=== PATIENT | male | born 1970 | race Caucasian/White ===

== ENCOUNTER 2016-05-09 08:28 | Observation (INO) | payer OTHER ==
[~2016-05-09] VITALS: Ht 182.9 cm; Wt 103.5 kg
--- NOTE | ~2016-05-09 | CATH ---
Cardiac Diagnostic + PCI Report Demographics Patient Name ARLETH Campbell Gender Male Date of 1970 Age 45 year(s) Patient Number [id number] Date of Study 05/09/2016 Visit Number [id number] Room Number G6338 [place] [id number] Ht 182 cm Wt 99.8 kg Referring [facility] Primary Physician Physician Erica KAHN Performing [facility] Secondary Physician Physician Erica KAHN Diagnostic [facility] Assisting Physician Physician Erica KAHN Interventional [facility] Physician [employer] Washing Physician Erica KAHN Findings and Conclusions Diagnostic Findings and Conclusion 2 vessel CAD Prox/mid/distal LAD stents are patent Subtotalled small OM3 branch OM2 branch with 60% eccentric lesion Diagnostic Recommendations It's a small vessel, however I have attempted antianginals and despite >3 meds pt continues to have CP and frequent trips to ER and clinic with continued complaints of chest pain, so I will attempt PTCA of the small OM3 branch and hope it helps alleviate his symptoms of cp. Interventional Findings and Conclusion s/p PTCA of subtotalled OM3 99% to 20% residual stenosis with JEN 2 flow The vessel is too small to stent Interventional Recommendations Continue regular medications. Patient will be observed overnight. Hydration and followup creatinine. Aggressive risk factor management. Aggressive medical therapy for coronary artery disease. Dual Anti-platelet therapy. Optimization of medical therapy as an outpatient. Referral to Cardiac Rehabilitation after discharge . Procedure Description The patient was brought to the diagnostic cardiac catheterization-EP laboratory in the fasting, non-sedated state. Informed consent was obtained in the written and verbal form after the risks and benefits were explained. The patient had no further questions and agreed to proceed. The planned puncture-incision site(s) were shaved and prepped with ChloraPrep and draped in the usual sterile manner. Conscious sedation, supplemental oxygen, and pain control medications were delivered by a registered nurse under physician guidance. Surface ECG rhythm, blood pressure measurement, and pulse oximetry were monitored throughout the procedure. Arterial access. The access site was infiltrated with lidocaine. The vessel was entered with the Seldinger technique. A sheath was advanced into the vessel and used for catheter placement. Selective left coronary angiography. A catheter was advanced into the left coronary vessel ostium under Fluoroscopic guidance. Contrast was injected by hand. Images were obtained in multiple projections. Selective right coronary angiography. A catheter was advanced into the right coronary vessel ostium under fluoroscopic guidance. Contrast was injected by hand. Images were obtained in multiple projections. Angioplasty: A guiding catheter was used to intubate the vessel. A 0.14 wire was used to cross the lesion. A balloon was positioned across the lesion and inflated. Post placement angiograms were performed. Arterial artery hemostasis was achieved. The patient was transferred to a regular nursing floor via cart accompanied by a nurse. The patient left the laboratory in stable condition. Diagnostic Cath Status: Emergency Interventional Cath Status: Emergency Procedure Procedure Type Diagnostic procedure:Angiography:, Coronary Angios PCI procedure:PTCA:, OM Indications: Chest pain. The procedure was explained in detail to the patient. Risks, complications and alternative treatments were reviewed. Written consent was obtained. Medications Reviewed with Patient prior to Procedure. Angiographic Findings Dominance: Right Cardiac Arteries and Lesion Findings LMCA: Normal (0% Stenosis). LAD: Abnormal.prox/mid/distal LAD stents patent diag 20% ostialThere is a previous stent on Mid LAD Mid subsection. There is a previous stent on Prox LAD. Lesion on 1st Diag: Ostial.20% stenosis . LCx: Abnormal.circ wnl OM1 normal OM2 60% diffuse disease in the proximal portion OM3 subtotalled Lesion on 3rd Ob Tracey: Ostial. Devices used - Runthrough NS .014 x 180. Number of passes: 1. - Emerge Balloon 2.0 x 12. 3 inflation(s) to a max pressure of: 12 shivani. - Emerge Balloon 2.0 x 12. 2 inflation(s) to a max pressure of: 10 shivani. Lesion on Lat 3rd Ob Tracey: Ostial.99% stenosis 10 mm length reduced to 20%. Pre procedure JEN I flow was noted. Post Procedure JEN II flow was present. The guidewire cross was successful.A poor run off was present.The lesion was diagnosed as a moderate risk lesion.Culprit lesion. RCA: Abnormal.prox RCA 20% PL 20% Coronary Tree Procedure Data Procedure Date Date: 05/09/2016Start: 10:36 AMEnd: 11:18 AM Entry Locations - Retrograde Percutaneous access was performed through the Right Radial artery (Primary location). A 6 Fr sheath was inserted. Hemostasis was successfully obtained using Mechanical Compression. Closure Comments: 13 cc air in r band by kain. Procedure Medications Order and Administration + + + + + !Time !Medication !Dosage !Route ! + + + + + !05/09/2016 10:35 AM !Fentanyl !50 mcg !I.V. ! + + + + + !05/09/2016 10:34 AM !Versed !1 mg !I.V. ! + + + + + !05/09/2016 10:38 AM !Versed !1 mg !I.V. ! + + + + + !05/09/2016 10:39 AM !Radial Verapamil !2.5 mg !I.A. ! + + + + + !05/09/2016 10:39 AM !Fentanyl !50 mcg !I.V. ! + + + + + !05/09/2016 10:44 AM !Versed !1 mg !I.V. ! + + + + + !05/09/2016 10:44 AM !Heparin (ACC_3) !5000 units !I.V. bolus ! + + + + + !05/09/2016 10:51 AM !Versed !1 mg !I.V. ! + + + + + !05/09/2016 10:52 AM !Heparin (ACC_3) !3000 units !I.V. bolus ! + + + + + !05/09/2016 10:54 AM !Fentanyl !50 mcg !I.V. ! + + + + + !05/09/2016 11:02 AM !Versed !1 mg !I.V. ! + + + + + !05/09/2016 11:04 AM !Heparin (ACC_3) !2000 units !I.V. bolus ! + + + + + !05/09/2016 11:04 AM !Fentanyl !50 mcg !I.V. ! + + + + + !05/09/2016 11:09 AM !Nitroglycerin !5 mcg/min !I.V. drip ! + + + + + !05/09/2016 11:11 AM !Nitroglycerin ! !I.V. drip ! + + + + + !05/09/2016 11:11 AM !Oxygen !2 l/min !NC ! + + + + + Devices Used - A5 Fr. BS JR 4 Diag. Catheterwas used for:Right coronary angiography. - A6 Fr. EBU 3.5 Guide Catheterwas used for:Left coronary angiography. Contrast Material - Isovue 319644 ml Fluoroscopy Time: Diagnostic: 9:36 minutes. Total: 9:36 minutes. Fluoroscopy Dose: Diagnostic: 2101 mGy. Total: 2101 mGy. Estimated Blood Loss: 10 ml. Additional [facility] PCI Information PCI Indication:PCI for high risk Non-STEMI or unstable angina. Medical History Allergies - Sulfa. - Sulfa. Risk Factors The patient risk factors include:prior PCI on 02/07/2016;physical activity, treated hypercholesterolemia, treated hypertension, family history of premature CAD, last creatinine: 1.3 mg/dl, creatinine clearance: 101.29 ml/min, dyslipidemia, former tobacco use and prior [place] . Admission Data Admission Date: 05/09/2016 Admission Time: 10:27 AM Admit Source: Emergency department Insurance Payors: Private health insurance. Clinical Evaluation Leading to Procedure - The patient's CAD presentation was assessed as: Unstable angina. - The patient's anginal syndrome during the past two weeks was assessed as: Class IV according to the [place] Cardi[employer] Classification System (CCS). Anti-anginal medications were prescribed during the past two weeks. The medications are: Beta Blockers and Other. - The patient has been in a state of heart failure within the past two weeks. - The patient's heart failure status was assessed as NYHA Class II, with CHF symptoms of MARTINEZ. [facility] Ventriculography Findings echo EF 55-60% Hemodynamics Condition: Rest O2 Consumption: Estimated: 292.38Heart Rate: 100 bpm Pressures (mmHg) +-----+ + !Site !Pressure ! +-----+ + !AO !120/95 (107) ! +-----+ + !AO !109/82 (91) ! +-----+ + Shunts Oxygen Values O2 Capacity 199.92 O2 Consumption 292.38 Signatures dtt: ERICA SNIDER dtd: 05/09/16 1036 Physician Self Edit
--- NOTE | ~2016-05-09 | CON ---
PATIENT'S NAME: KARL BLOOD [facility] AGE: 45 Y [address] ROOM: G6338 [place], [place] [address] LOCATION: GPCU ADMIT DATE: 05/09/2016 Consultation DISCHARGE DATE: FAMILY PHYSICIAN: Layne Barajas MD ATTENDING PHYSICIAN: LELO SNIDER DATE OF CONSULTATION: 05/09/2016 REQUESTING PROVIDER: Keysha Bender MD REASON FOR CONSULTATION: Chest pain. CHIEF COMPLAINT: Chest pain HISTORY OF PRESENT ILLNESS: The patient is a very pleasant 45-year-old male, who initially had a non-STEMI in January 2016. He also had malignant hypertensive urgency when he came during that admission in January. During catheterization, he found to have significant obstructive disease in most of the LAD proximal and mid to distal and required three drug-eluting stents to be placed at that time. He had a severe reaction during the end of the procedure and not sure if he was allergic to contrast or Angiomax, but we did have to follow the ACLS protocol for hypotension for a little bit and difficulty breathing. He did receive doses of epi for possible anaphylactic reaction to either Angiomax or contrast. The patient has had numerous complaints since his initial stenting and has had several visits to the ER as well as to my clinic with complaints of chest pain. Most of the times, he did rule out HI. There were no significant ECG changes and he has just been optimized medically to help control his symptoms. The OM3 during his initial catheterization was subtotal, but it is a very small vessel and we thought we would just treat that medically. This morning, he was in the tractor trying to remove the snow and he started having severe chest pain 10/10 and that radiates to the back and the jaw. He also has diaphoresis and shortness of breath. He seems to be in significant amount of distress. He took one sublingual nitroglycerin but that did not help. After coming to the ER, he got full-dose aspirin, heparin. I asked the ER physician to also prep him for contrast allergy and we will take him to the dental laboratory assistant urgently to see if he has any in-stent restenoses of his drug alluding stents or perhaps he might need intervention of that OM branch. He does not have any fever, chills, nausea, vomiting, diarrhea, constipation. PATIENT'S NAME: ARLETH, TY [facility] AGE: 45 Y [address] ROOM: [place] [address] LOCATION: GPCU ADMIT DATE: 05/09/2016 Consultation DISCHARGE DATE: FAMILY PHYSICIAN: Layne Barajas MD ATTENDING PHYSICIAN: LELO SNIDER No other acute illnesses. He has been in his usual state of health. He was having severe adverse reactions with Brilinta ,especially shortness of breath and dyspnea on exertion and that was discontinued and he has been taking Effient, but complains of bruising off and on. REVIEW OF SYSTEMS: A 10-point review of systems discussed with patient. Pertinent positives and negatives mentioned in the history of presenting illness. MEDICATIONS: 1. Aspirin 81 daily. 2. Lipitor 80 daily. 3. Lexapro 20 daily. 4. Neurontin 600 t.i.d. 5. Lopressor 50 b.i.d. 6. Effient 10 daily. 7. Ranexa 500 b.i.d. 8. Motley p.r.n. 9. Flexeril 10 mg p.r.n. 10. Xanax 0.5 mg p.r.n. 11. Nitroglycerin sublingual p.r.n. ALLERGIES: SULFA, ANGIOMAX, AND CONTRAST. PAST MEDICAL HISTORY: Chronic back pain, hypertension, anxiety, depression, and coronary artery disease. Non-STEMI in January 2016. PAST SURGICAL HISTORY: Appendectomy, vasectomy. SOCIAL HISTORY: The patient lives in [place]. 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 No alcohol abuse, no illicit drug abuse, and no history of tobacco abuse. FAMILY HISTORY: No premature coronary artery disease or sudden cardiac . PHYSICAL EXAMINATION: VITAL SIGNS: Blood pressure 130/80, heart rate in the 80s. Height is 6 feet. GENERAL: The patient is alert and oriented, however, he is in severe distress and he is not able to lay still due to pain. HEENT: Eyes; sclerae white. No xanthelasma. Mucous membranes moist. PATIENT'S NAME: KARL BLOOD [facility] AGE: 45 Y [address] ROOM: [place] [address] LOCATION: GPCU ADMIT DATE: 05/09/2016 Consultation DISCHARGE DATE: FAMILY PHYSICIAN: Layne Barajas MD ATTENDING PHYSICIAN: LELO SNIDER NECK: No JVD. Supple. LUNGS: Clear to auscultation bilaterally HEART: S1 and S2. Regular rate and rhythm. No murmurs, gallops, or rubs. ABDOMEN: Soft. Bowel sounds positive. SKIN: Warm and dry. NEUROLOGIC: No focal deficits. JOINTS: Have no significant swelling or erythema noted. IMAGING: Echocardiogram; normal LV systolic function. LVEF 55-60%. Mild MR. No significant wall motion abnormalities on echo that was done during his last admission a month ago. EKG, normal sinus rhythm with some baseline artifact, mild ST depression in isolated lead V3. LABORATORY DATA: Sodium 141, potassium 4.2, chloride 108, CO2 of 24, anion gap 13.2, glucose 101, calcium is 8.7, BUN 19, creatinine 1.3. Alkaline phosphatase is 73, AST 24, ALT 52, estimated GFR 50. LDL 64, triglycerides 92, CPK first set is 78. CK-MB 1 and troponin is less than 0.04. Chest x-ray, there is no evidence of acute cardiopulmonary disease. ASSESSMENT AND PLAN: 1. Unstable angina in patient with recent stenting of his proximal and mid to distal LAD with three drug-eluting stents and now he has severe chest discomfort radiating to the jaw, this is very concerning for obstructive coronary artery disease. He has had numerous admission for recurrent chest pain as well as visits to the emergency room. At this time, I think it is best to proceed with heart catheterization and evaluate the stents. I have tried everything to attempt to treat him medically but he continues to come back with recurrent symptoms. He is on guideline- directed medical therapy. We will evaluate the LAD stents and if necessary if those are patent, he may need at least ballooning or perhaps may be a small stent of the distal OM3 branch. He did have significant anaphylactic reaction at the end of the catheterization and I will prep him for potential contrast allergy and we will avoid Angiomax and we will give him heparin if we need to intervene for this admission. 2. Hypertension, that is well controlled. 3. Hyperlipidemia, that is well controlled. 4. Chronic medical issues including anxiety/depression and chronic pain, he is on medications. We will continue those while he is inpatient. Thank you very much, Dr. Bender for allowing us to participate in the care of Mr. Blood. We will proceed with heart catheterization and decide further treatment plan. PATIENT'S NAME: KARL BLOOD A [facility] AGE: 45 Y [address] ROOM: [address] [place] [id number] [facility] AD[facility] DATE: 05/09/2016 Consultation DISCHARGE DATE: FAMILY PHYSICIAN: Layne Barajas MD ATTENDING PHYSICIAN: LELO SNIDER LELO SNIDER MD AT/modl /[id number] d: 05/09/16 1415 t: 05/20/16 1733, CONSULTATION REPORT
--- NOTE | ~2016-05-09 | ER ---
PATIENT'S NAME: KARL REINOSO [facility] AGE: 45 Y [address] ROOM: [place] [address] LOCATION: GPCU ADMIT DATE: 05/09/2016 ER/Outpatient Report DISCHARGE DATE: FAMILY PHYSICIAN: Layne Barajas MD ATTENDING PHYSICIAN: LELO SNIDER Time of Arrival: 0828 hours. Time Seen: 0830 hours. IDENTIFICATION: A 45-year-old male. CHIEF COMPLAINT: Chest pain. HISTORY OF PRESENT ILLNESS: The patient developed severe substernal left-sided chest pain with no radiation after scooping snow in a tractor approximately 10 minutes prior to arrival. It is associated with nausea, shortness of breath, diaphoresis, and lightheadedness. The patient has a history of known coronary artery disease, had a non ST-elevation NJ in January with 3 stents to his LAD. The patient was admitted on March 21 and with atypical chest pain, had a transthoracic echocardiogram which was normal and was evaluated by the independent living instructor. The patient had complications of having an anaphylactic reaction during the cardiac cath and they are not sure what he reacted to. PAST MEDICAL HISTORY: ALLERGIES: SULFA, ANGIOMAX (BIVALIRUDIN), AND AMLODIPINE. CURRENT MEDICATIONS: 1. Nitroglycerin 0.4 mg sublingual p.r.n., he did take one prior to arrival with no relief. 2. Aspirin 81 mg daily, has not taken yet today. 3. Lipitor 80 mg. 4. Lexapro 20 mg. 5. Neurontin 600 mg t.i.d. 6. Imdur 30 mg daily. 7. Lopressor 50 mg b.i.d. 8. Effient 10 mg daily. 9. Ranexa 1000 mg b.i.d. 10. [place] 10/325 q.4 hours. 11. Flexeril 10 mg p.r.n. 12. Xanax 0.5 mg p.r.n. q.6 hours. PATIENT'S NAME: KARL REINOSO [facility] AGE: 45 Y [address] ROOM: [place] [address] LOCATION: GPCU ADMIT DATE: 05/09/2016 ER/Outpatient Report DISCHARGE DATE: FAMILY PHYSICIAN: Layne Barajas MD ATTENDING PHYSICIAN: LELO SNIDER MEDICAL PROBLEMS: Hypertension, hyperlipidemia, chronic back pain, anxiety, depression, non-ST- elevation NJ with stents, and anaphylactic reaction. PRIOR SURGERIES: Cardiac stents, appendectomy, and vasectomy. SOCIAL HISTORY: The patient lives in [place]. 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 Tobacco use, he has quit. Alcohol use, denies. Drug use, denies. REVIEW OF SYSTEMS: All systems reviewed and negative other than what is noted in the HPI. FAMILY HISTORY: No family history of premature coronary artery disease. PHYSICAL EXAMINATION: VITAL SIGNS: Weight 109.5 kg. Blood pressure 123/96, pulse 92, respirations 20, temperature 96, and sats 97% on room air. GENERAL: A 45-year-old male, in obvious distress with significant 8/10 chest pain. HEENT: Normocephalic, atraumatic. Eyes: Pupils equal and reactive to light and accommodation. Extraocular movements intact. Nose: Mucosa pink. No lesions. Mouth: No lesions. Pharynx benign. NECK: Supple. No lymphadenopathy. LUNGS: Clear to auscultation. HEART: Regular rate and rhythm. ABDOMEN: Bowel sounds present. Soft, nondistended. No hepatosplenomegaly. No palpable masses. Nontender. SKIN: [place], warm, and dry. No lesions or rashes noted. NEURO: The patient is alert and oriented x4. Cranial nerves 2 through 12 grossly intact. Motor strength 5/5 throughout. Sensation is intact to light touch. EMERGENCY DEPARTMENT COURSE: An IV was initiated. The patient was given 4 baby aspirin and 1 sublingual nitroglycerin. EKG was obtained showing normal sinus rhythm with PACs, minimal ST-segment depression in V3 only, no significant change when compared to prior EKG. ST depression in that I lead is slightly different. Sodium 141, potassium 4.2, chloride 108, CO2 24, BUN 19, creatinine 1.3, and blood sugar 101. Liver enzymes normal. Magnesium 2, CK 78, CK-MB 1, and troponin I less than 0.040. Hemoglobin 14.7, hematocrit 43.9, platelets 225, and white count 6.0 with a normal differential. INR 1.0. Chest x-ray, no acute PATIENT'S NAME: KARL REINOSO [facility] AGE: 45 Y [address] [place]: [facility] [place], [place] [address] [facility] AD[facility] DATE: 05/09/2016 ER/Outpatient Report DISCHARGE DATE: FAMILY PHYSICIAN: Layne Barajas MD ATTENDING PHYSICIAN: LELO SNIDER process, pending Radiology over-read. The patient received no relief with sublingual nitroglycerin. He was started on a nitroglycerin drip and given morphine with no relief. He was given Dilaudid with no relief. He continued to have 8/[address] Maldonado was contacted and decided to take him to the computer lab para professional. IMPRESSION AND PLAN: 1. Unstable angina with persistent pain. The patient was taken to the computer lab para professional per Dr. Maldonado. 2. Hypertension. 3. Hyperlipidemia. 4. Chronic back pain. 5. Anxiety and depression. 6. History of anaphylactic reaction. The patient was premedicated for the computer lab para professional with Solu-Medrol 125 mg IV, Pepcid 20 mg IV, Benadryl 25 mg IV, and heparin [address] Maldonado. The patient arrived to the ER at 0828 hours, seen at 0830 hours, and taken to the computer lab para professional at 1021 hours. 35 minutes of critical care was provided with this patient. EVANS ANDERSON MD CAR/modl /[id number] d: 05/09/16 2150 t: 05/13/16 0653, OUTPATIENT REPORT
[~2016-05-09 08:28] MED LIST: ADVIL200 MG PO; ASPIRIN LO-DOSE81 MG PO; BRILINTA90 MG PO; ECOTRIN81 MG PO; EFFIENT10 MG PO; FLEXERIL10 MG PO; IMDUR30 MG PO; LEXAPRO20 MG PO; LIPITOR80 MG PO; LOPRESSOR50 MG PO; NEURONTIN300 MG PO; NITROSTAT0.4 MG SL; NORCO 10-325 T1 EACH PO; NORVASC5 MG PO; RANEXA ER500 MG PO; SIMVASTATIN40 MG PO; XANAX0.5 MG PO; ZOFRAN4 MG PO
[2016-05-09 08:50] LABS: BASOPHIL # 0.1 K/uL (0.0-0.2); EOSINOPHIL # 0.1 K/uL (0.0-0.5); EOSINOPHIL % 2.2 %; HEMATOCRIT 43.9 % (37.0-53.0); HEMOGLOBIN 14.7 g/dL (12.0-17.0); IMMATURE GRANULOCYTE % 0.3 %; LYMPHOCYTE # 2.7 K/uL (0.8-4.0); LYMPHOCYTE % 45.2 %; MCH 29.6 pg (27.0-34.0); MCHC 33.5 gm/dL (32.0-36.5); MCV 88.3 fl (83.0-98.0); MONOCYTE # 0.4 K/uL (0.0-1.0); MPV 10.1 fl (9.4-12.4); NEUTROPHIL # (ANC) 2.7 K/uL (1.4-9.0); NEUTROPHIL % 44.3 %; NRBC % 0 /100WBC (0-0.00); RBC 4.97 M/uL (4.00-6.00); RDW-CV 13.3 % (11.9-14.6)
[2016-05-09 08:51] LABS: PLATELET COUNT 225 K/uL (150-450)
[2016-05-09 09:04] LABS: PROTIME 10.8 SECONDS (9.6-11.1); PTT 26 SECONDS (25-32)
[2016-05-09 09:14] LABS: ALK PHOS 73 IU/L (33-138); ALT 52 IU/L (12-78); ANION GAP 13.2 (10.0-19.0); AST 24 IU/L (10-40); BLOOD UREA NITROGEN 19 mg/dL (6-24); CALCIUM 8.7 mg/dL (8.5-10.5); CHLORIDE 108 mMol/L (96-110); CO2 24 mMol/L (22-32); CPK 78 IU/L (35-332); CREATININE 1.3 mg/dL (0.6-1.3); ESTIMATED GFR (MDRD EQUATION) 60; POTASSIUM 4.2 mMol/L (3.7-5.1); SODIUM 141 mMol/L (135-145); TOTAL BILIRUBIN 0.6 mg/dL (0.0-1.5); TOTAL PROTEIN 7.2 g/dL (6.0-8.4)
[2016-05-09] MEDS ORDERED: PROMETHAZINE HC25 M1 PO (12:10)
[2016-05-09 16:16] LABS: CPK 64 IU/L (35-332)
[2016-05-10 04:30] LABS: ALBUMIN 3.5 gm/dL (3.5-5.0); ALK PHOS 70 IU/L (33-138); ALT 39 IU/L (12-78); ANION GAP 12.7 (10.0-19.0); AST 19 IU/L (10-40); BLOOD UREA NITROGEN 18 mg/dL (6-24); CALCIUM 8.6 mg/dL (8.5-10.5); CHLORIDE 106 mMol/L (96-110); CO2 24 mMol/L (22-32); CREATININE 1.2 mg/dL (0.6-1.3); ESTIMATED GFR (MDRD EQUATION) > 60; POTASSIUM 4.7 mMol/L (3.7-5.1); SODIUM 138 mMol/L (135-145); TOTAL BILIRUBIN 0.5 mg/dL (0.0-1.5); TOTAL PROTEIN 6.7 g/dL (6.0-8.4)
[2016-05-10] MEDS ORDERED: TYLENOL325 MG PO (14:28)
[2016-05-10] MEDS ORDERED: PROCARDIA XL30 MG PO (14:29)
== END 2016-05-10 15:00 | disposition disaster alternative care site (69) ==
LOC: GMED 08:28 → GPCU 10:27
PROVIDERS: Family Medicine; ADMIT Internal Medicine Interventional Cardiology
PROC: 02713ZZ Dilation of Coronary Artery, Two Arteries, Percutaneous Approach (ICD-10-PCS; principal; 2016-05-09)
DX: I25.110 Atherosclerotic heart disease of native coronary artery with unstable angina pectoris (principal); I10 Essential (primary) hypertension; I25.2 Old myocardial infarction; F41.9 Anxiety disorder, unspecified; F32.9 Major depressive disorder, single episode, unspecified; M54.9 Dorsalgia, unspecified; G89.29 Other chronic pain; Z88.2 Allergy status to sulfonamides; Z91.041 Radiographic dye allergy status; Z95.5 Presence of coronary angioplasty implant and graft; Z98.890 Other specified postprocedural states; Z23 Encounter for immunization
CPT/HCPCS: A9270; C1725; C1769; C1887; G0009; G0378; J1170; J1200; J1644; J2060; J2250; J2270; J2930; J3010; J7030

== ENCOUNTER 2016-05-16 16:30 | Inpatient (IN) | payer OTHER ==
[~2016-05-16] VITALS: Ht 182.9 cm; Wt 100.5 kg
--- NOTE | ~2016-05-16 | ER ---
PATIENT'S NAME: KARL REINOSO [facility] AGE: 45 Y [address] ROOM: [place] [address] LOCATION: GPCU ADMIT DATE: 05/16/2016 ER/Outpatient Report DISCHARGE DATE: FAMILY PHYSICIAN: Layne Barajas MD ATTENDING PHYSICIAN: KATIE ENCARNACION Time of Arrival: 1631 hours. Time of Evaluation: 1631 hours. CHIEF COMPLAINT: Headache. HISTORY OF PRESENT ILLNESS: The patient states about 2 o'clock this morning, he got up to go to the bathroom, became dizzy, and ended up falling, hitting his head on the wall, and has had a headache ever since of the right posterior area. He states he was diagnosed with pneumonia 3 or 4 days ago. Started on Levaquin at that time, and he has had quite a cough. He said the cough has made the headache worse. He did take some ibuprofen at 1 o'clock this afternoon. Denies being nauseated, has not vomited. Has not had any change in his vision. He has had fevers and chills. Denies having any chest pain. Continues to be dizzy. ALLERGIES: ON HIS CHART AND WERE REVIEWED BY ME. CURRENT MEDICATIONS: On his chart and were reviewed by me. PAST MEDICAL HISTORY: Non-STEMI NH in January 2016, had stent of the LAD, hypertension, chronic low back pain, anxiety, depression, currently has pneumonia. PAST SURGICAL HISTORY: Include appendectomy, vasectomy, cardiac stents. SOCIAL HISTORY: Denies use of tobacco or drugs. Drinks alcohol just on occasional basis. REVIEW OF SYSTEMS: All negative other than those mentioned in the HPI. PHYSICAL EXAMINATION: VITAL SIGNS: He weighs 102.9 kg, blood pressure is 120/58, pulse of 88, respirations 16, temperature of 99.8 tympanic, O2 saturation is 91% on room air. [place] Coma Scale is 15. PATIENT'S NAME: KARL REINOSO [facility] AGE: 45 Y [address] ROOM: [place] [address] LOCATION: GPCU ADMIT DATE: 05/16/2016 ER/Outpatient Report DISCHARGE DATE: FAMILY PHYSICIAN: Layne Barajas MD ATTENDING PHYSICIAN: KATIE ENCARNACION GENERAL: He is awake, alert, and oriented x4. SKIN: His skin is pink, warm, and dry. RESPIRATIONS: Even and nonlabored. Lung sounds are clear throughout. HEART: Regular rate and rhythm. Pupils are equal and reactive to light. Extraocular movement is intact. Oropharynx is clear. NECK: Supple. No lymphadenopathy. EMERGENCY DEPARTMENT COURSE: The patient has a harsh cough during the coughing spell, his O2 sats do drop down to 87%. He was monitored after the coughing spell. He continued to have low O2 sats. He was placed on 1 L per nasal cannula to keep him above 90%. Dr. Rollins was consulted, and he did evaluate the patient. Monitor showing a sinus rhythm. LABORATORY DATA AND X-RAYS: Lab work was drawn. CBC is within normal limits. Chem panel: Sodium is 133, potassium is 4.9, and chloride 94. His BUN is 23 with a creatinine of 2.2. His last creatinine we have on file was 1.2, so he has an increase in his creatinine. His GFR is 33. Lactate was 2.9. CRP is 1.77. Procalcitonin is 0.19. Chest x-ray was reviewed with Dr. Rollins. No acute process noted. Dr. Cooper did call in and talked with Dr. Rollins regarding the patient. Dr. Encarnacion was contacted. IMPRESSION: 1. Acute kidney injury. 2. Hypoxia. 3. Cough. PLAN: The patient will be placed in observation to the hospitalist. The patient verbalizes understanding. MARIA D JOSEPH APRN FOR MD HARRY CANCINO/santosl /[id number] I have evaluated the patient and agree with the plan and care as documented above. d: 05/16/164 t: 05/26/16 1735, OUTPATIENT REPORT
--- NOTE | ~2016-05-16 | HP ---
PATIENT'S NAME: KARL REINOSO [facility] AGE: 45 Y [address] ROOM: [place] [address] [facility] ADMIT DATE: 05/16/2016 History & Physical DISCHARGE DATE: FAMILY PHYSICIAN: Layne Barajas MD ATTENDING PHYSICIAN: KATIE CLARK DATE OF SERVICE: CHIEF COMPLAINT: Syncope. HISTORY OF PRESENT ILLNESS: This is a 45-year-old male with a history of coronary artery disease, status post 3 drug-eluting stent placement in January 2016 as well as recent balloon angioplasty, presenting with chest pain by Dr. Cooper last week. Presents this time again after having a syncopal episode at home. The patient reports that he got up to use the restroom in the middle of the night last night and as he was doing that he was sitting at the side of the bed and the next thing he remembers was falling and waking up. The patient denies any prodromal symptoms including chest pain, shortness of breath, palpitations, dizziness, diaphoresis either prior to or following this syncopal episode. The patient's states that she heard a loud bang and woke up. The patient upon she approached him was awake and conscious. The patient subsequently came to the emergency room for evaluation. The patient of note had been having increasing cough that was productive and shortness of breath associated with this, and was started on treatment for possible community-acquired pneumonia and had been on Levaquin for the past 5 days by his primary care physician. The patient otherwise during my visit today denies any active ongoing chest pain. Does report significant cough, was also productive, however, sputum has gotten clear since he started antibiotics. The patient otherwise denies any dizziness or lightheadedness right now. Also denies any fever, chills, nausea, or vomiting. PAST MEDICAL HISTORY: 1. Coronary artery disease status post stents. 2. Hypertension. 3. Hyperlipidemia. SOCIAL HISTORY: The patient has a long history of smoking, but had stopped smoking about 9 months ago. Denies use of daily alcohol drinking or illicit drug use. FAMILY HISTORY: The patient's father from cancer at the age of 60. Also has history of brain aneurysm in the mother. PATIENT'S NAME: KARL REINOSO [facility] AGE: 45 Y [address] ROOM: [place] [address] [facility] ADMIT DATE: 05/16/2016 History & Physical DISCHARGE DATE: FAMILY PHYSICIAN: Layne Barajas MD ATTENDING PHYSICIAN: KATIE CLARK REVIEW OF SYSTEMS: A 10-point review of systems was conducted and were all negative except as mentioned in the HPI. PHYSICAL EXAMINATION: VITAL SIGNS: Blood pressure 116/66, pulse 85, respiratory rate 20, temperature 98.3, and saturating 90% on 2 L of oxygen. GENERAL: The patient is awake, alert, and oriented x3, in no acute distress. HEENT: Moist mucous membranes. No scleral icterus or conjunctival pallor noted. SKIN: Without rash or lesions. HEART: S1 and S2. Regular rate and rhythm. LUNGS: Diminished breath sounds and diffuse wheezing noted. ABDOMEN: Soft, nontender, and nondistended. Positive bowel sounds. EXTREMITIES: Without edema. MUSCULOSKELETAL: No joint pain or muscle tenderness noted. NEURO: Grossly nonfocal. SIGNIFICANT LABS: Creatinine 2.2, BUN 23. Creatinine last week was 1.2. ASSESSMENT AND PLAN: 1. Syncope, cardiac. Syncopal episode appears to have occurred without any prodrome. Knowing the patient's extensive cardiac history needs evaluation for cardiac syncope. The patient very well known to [facility] Cardiology and we will consult. The patient has had recent balloon angioplasty during this admission last week after presenting with chest pain. 2. Coronary artery disease, status post 3 drug-eluting stents placement in January as well as balloon angioplasty last week. The patient very well known to Dr. Cooper and [facility] Cardiology. 3. Hypertension. The patient started on Procardia during his last admission. Blood pressure 116/68. 4. Acute kidney injury. The patient's creatinine 2.2 today. Upon discharge last week was 1.2. The patient did have angiogram last week and this was likely contrast induced. We will give some IV fluids and recheck creatinine in the morning. 5. Hyperlipidemia. Continue high-dose statin therapy. 6. Deep venous thrombosis prophylaxis. We will use subcutaneous heparin. KATIE CLARK MD PATIENT'S NAME: KARL REINOSO [facility] AGE: 45 Y [address] ROOM: [place] [address] LOCATION: [facility] ADMIT DATE: 05/16/2016 History & Physical DISCHARGE DATE: FAMILY PHYSICIAN: Layne Barajas MD ATTENDING PHYSICIAN: KATIE CLARK /[id number] D: [id number] T: [id number] HISTORY & PHYSICAL
--- NOTE | ~2016-05-16 | DS ---
PATIENT'S NAME: KARL REINOSO [facility] AGE: 45 Y [address] ROOM: [place] [address] LOCATION: GPCU ADMIT DATE: 05/16/2016 Discharge Summary DISCHARGE DATE: 05/20/2016 FAMILY PHYSICIAN: Layne Barajas MD ATTENDING PHYSICIAN: Doug Encarnacion PRIMARY DIAGNOSES: 1. Bwx-QT-wdoylckle myocardial infarction. 2. Coronary artery disease, status post left heart catheterization with drug- eluting stent to the obtuse marginal 3. 3. Essential hypertension. 4. Hyperlipidemia. 5. Syncope, vasovagal. 6. Acute bronchitis. 7. Acute kidney injury, prerenal. OPERATIONS AND PROCEDURES: Left heart catheterization was performed on 05/19/[address] Almonte with resultant drug-eluting stent to the OM 3. HISTORY OF PRESENTING ILLNESS AND REASON FOR ADMISSION: Please refer to the H and P dictated on 05/16/2016. HOSPITAL COURSE: The patient was admitted to the hospital as noted above with a presumptive diagnosis of dkx-SC-hvfbtawyw FL. He was monitored on telemetry. Cardiology was consulted. The patient did receive broad-spectrum antibiotic therapy for treatment and prevention of secondary pneumonia with acute bronchitis. He also received some aggressive symptomatic measures and supportive cares including IV fluids, expectorants, and nebulizer treatments. His oxygenation remained adequate. He had acute kidney injury at the point of admission, but this resolved with IV fluid hydration therapy. Cardiology did recommend to proceed with cardiac catheterization. This was carried out as described above with resultant drug- eluting stent to the obtuse marginal 3. Postoperatively, the patient did well and remained chest pain-free over the remainder of his hospital stay. By the end of the fifth day of his hospital stay, it was felt he would be stable enough for discharge to home with plans for close clinical followup with Cardiology as well as outpatient followup with his primary care provider Dr. Layne Barajas. DISCHARGE INSTRUCTIONS: DIET: Cardiac prudent, as tolerated. PATIENT'S NAME: KARL REINOSO [facility] AGE: 45 Y [address] ROOM: [place] [address] LOCATION: GPCU ADMIT DATE: 05/16/2016 Discharge Summary DISCHARGE DATE: 05/20/2016 FAMILY PHYSICIAN: Layne Barajas MD ATTENDING PHYSICIAN: Doug Encarnacion ACTIVITY: As tolerated. MEDICATIONS: 1. Aspirin 81 mg p.o. daily. 2. Atorvastatin 80 mg p.o. q.h.s. 3. Lexapro 20 mg p.o. q.h.s. 4. Gabapentin 600 mg p.o. t.i.d. 5. Metoprolol 100 mg p.o. b.i.d. 6. Nifedipine ER 30 mg p.o. q.a.m. 7. Effient 10 mg p.o. daily. 8. [place] 10/325 one tablet p.o. q.4 hours p.r.n. pain. 9. Alprazolam 0.5 mg p.o. q.6 hours p.r.n. anxiety. 10. Promethazine 25 mg p.o. q.6 hours p.r.n. nausea. 11. Flexeril 10 mg p.o. q.h.s. p.r.n. 12. Nitroglycerin p.r.n. 13. Acetaminophen 650 mg p.o. q.4 hours p.r.n. FOLLOWUP: He will follow up with Cardiology in 2 weeks, follow up with primary care provider Dr. Layne Barajas in 5 to 7 days. CONDITION ON DISCHARGE: Fair. Total time spent on discharge process is 45 minutes. MD ODILIA JANE/ophelia /[id number] d: 05/21/16 1101 t: 05/25/16 1550, DISCHARGE SUMMARY
--- NOTE | ~2016-05-16 | CON ---
PATIENT'S NAME: KARL REINOSO [facility] AGE: 45 Y [address] ROOM: [place] [address] [facility] ADMIT DATE: 05/16/2016 Consultation DISCHARGE DATE: FAMILY PHYSICIAN: Layne Barajas MD ATTENDING PHYSICIAN: KATIE CLARK DATE OF CONSULTATION: 05/17/2016 REFERRING PHYSICIAN: Nhan Moore MD CARDIOLOGY CONSULTATION REASON FOR CARDIOLOGY CONSULTATION: Syncope and chest pain. HISTORY OF PRESENT ILLNESS: This is a 45-year-old male, who is familiar to [facility]. He was last seen on 05/10/2016 during a hospital discharge. He has an extensive coronary artery disease history with drug-eluting stenting x3 to his LAD as well as a balloon to his OM most recently by Dr. Erica Almonte. He presents this admission to the emergency department with complaints of syncopal episode without aura. He states that he continues to have a very familiar substernal chest pain as before with no radiation and no increase noted with a new cough. The patient has recently been diagnosed with community-acquired pneumonia and is on Levaquin. Other than his nonproductive cough, he has no complaints of nausea, vomiting, or diarrhea. He is also noted to be afebrile. At the time of this consult, he is resting comfortably in bed but does have intermittent dry nagging cough and once again does admit that he does have familiar chest pain and pressure substernally. PAST MEDICAL HISTORY: Unchanged from dictation by Dr. Erica Almonte on 05/09/2016. PAST SURGICAL HISTORY: Unchanged from dictation by Dr. Erica Almonte on 05/09/2016. SOCIAL HISTORY: Unchanged from dictation by Dr. Erica Almonte on 05/09/2016. FAMILY HISTORY: Unchanged from dictation by Dr. Erica Almonte on 05/09/2016. CURRENT MEDICATIONS: 1. Ipratropium bromide and albuterol sulfate inhaled 4 times daily. 2. Heparin IV per ACS protocol. 3. Nitroglycerin IV with titration parameters for chest pain. PATIENT'S NAME: KARL REINOSO [facility] AGE: 45 Y [address] ROOM: [address] [address] LOCATION: GPCU ADMIT DATE: 05/16/2016 Consultation DISCHARGE DATE: FAMILY PHYSICIAN: Layne Barajas MD ATTENDING PHYSICIAN: KATIE CLARK 4. Aspirin 81 mg p.o. daily. 5. Effient 10 mg p.o. daily. 6. Lexapro 20 mg p.o. daily in the evening. 7. Lipitor 80 mg p.o. daily in the evening. 8. Lopressor 50 mg p.o. 3 times daily. 9. Neurontin 600 mg p.o. 3 times daily. 10. Procardia XL 30 mg p.o. daily. MEDICATION ALLERGIES: 1. Sulfa causing hives. 2. Amlodipine causing anaphylaxis. 3. Bivalirudin causing anaphylactic reaction in the catheterization laboratory, requiring epinephrine. REVIEW OF SYSTEMS: Pertinent positive review of systems are noted in the HPI. All other review of systems evaluated and negative. LABORATORY DATA AND IMAGING STUDIES: Diagnostics: CMS evaluation shows a sodium of 138, potassium 4.6, BUN of 28, creatinine 1.8, glucose of 100, and a magnesium of 2.3. He has a chest x-ray which is within normal limits, and he has a troponin I trend of 2.02 and then 1.94. PHYSICAL EXAMINATION: VITAL SIGNS: Temperature 98.0, pulse 65, respirations 18, blood pressure 116/68, and O2 saturation 92% on 2 L nasal cannula. The patient weighs 103.9 kg. SKIN: [place], warm, and dry. EYES: Sclerae clear. No xanthelasmas. ENT: Oral mucosa is pink and moist. No jugular venous distention or carotid bruits. CHEST: Respirations are coarse with noted rhonchi throughout lung esteves. He does have a noted nonproductive cough. HEART: Irregularly irregular rate and rhythm. 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 Normal S1 and S2. No murmurs, rubs, or gallops. ABDOMEN: Soft and nontender. MUSCULOSKELETAL: Gait is normal. EXTREMITIES: Peripheral pulses palpable. No clubbing, cyanosis, or edema. PSYCHIATRIC: Alert and oriented. Mood and affect are appropriate. IMPRESSION AND PLAN: Per Dr. Moore: 1. Syncope. PATIENT'S NAME: KARL REINOSO [facility] AGE: 45 Y [address] ROOM: [place] [address] [facility] ADMIT DATE: 05/16/2016 Consultation DISCHARGE DATE: FAMILY PHYSICIAN: Layne Barajas MD ATTENDING PHYSICIAN: KATIE CLARK 2. Coronary artery disease with history of stenting x3 to the left anterior descending as well as a balloon to the obtuse marginal, currently on and tolerating aspirin, Effient, Lipitor, beta basil, and calcium channel basil. 3. Evv-FB-uztlwldgf myocardial infarction. 4. Community-acquired pneumonia, currently on p.o. Levaquin and his QTc is stable on the EKG. 5. Hypertension. 6. Acute kidney injury, currently improved. With the notation of this new ectopy, we will continue to trend his cardiac enzymes as well as check another EKG in the morning. We will continue to monitor, evaluate, and treat as appropriate. Thank you for this consult. Thank you for allowing [facility] to interact in the care of this patient. JUSTINA CHARLES APRN FOR TERRA-MD BISHNU CARY/ophelia /[id number] d: 05/18/16 1259 t: 05/22/16 1431, CONSULTATION REPORT
--- NOTE | ~2016-05-16 | CATH ---
Cardiac Diagnostic + PCI Report Demographics Patient Name ARLETH Campbell Gender Male Date of 1970 Age 45 year(s) Patient Number [id number] Date of Study 05/19/2016 Visit Number [id number] Room Number G[address] [place] [id number] Ht 182.88 cm Wt 100.5 kg Referring Karl Gonzalez Primary Physician Physician Performing [facility] Secondary Physician Physician Erica KAHN Diagnostic [facility] Assisting Physician Physician Erica KAHN Interventional [facility] Physician Auto Dealer Physician Erica KAHN Findings and Conclusions Diagnostic Findings and Conclusion 2 Vs CAD, LAD stents patent Obstructive 90% stenosis noted in OM3 Diagnostic Recommendations PCI of OM 3 wtih PERLITA, pt admiited with NSTEMI Interventional Findings and Conclusion Successful PCI of OM3 with PERLITA Interventional Recommendations Patient will be observed overnight. Hydration and followup creatinine. Patient has been instructed to not lift anything more than 5 pounds for 1 week. DAPT for 1 year. Cardiac rehab and cardiac diet. Aggressive risk factor modification. I will plan on seeing the patient back in 2 week(s). I would like to thank Dr. Barajas for the opportunity to participate in the care of Mr Blood . Procedure Description The patient was brought to the diagnostic cardiac catheterization-EP laboratory in the fasting, non-sedated state. Informed consent was obtained in the written and verbal form after the risks and benefits were explained. The patient had no further questions and agreed to proceed. The planned puncture-incision site(s) were shaved and prepped with ChloraPrep and draped in the usual sterile manner. Conscious sedation, supplemental oxygen, and pain control medications were delivered by a registered nurse under physician guidance. Surface ECG rhythm, blood pressure measurement, and pulse oximetry were monitored throughout the procedure. Arterial access. The access site was infiltrated with lidocaine. The vessel was entered with the Seldinger technique. A sheath was advanced into the vessel and used for catheter placement. Stent: A guiding catheter was used to intubate the vessel. A 0.14 wire was used to cross the lesion. A stent was placed. Post placement angiograms were performed. Arterial artery hemostasis was achieved. The patient was transferred to a regular nursing floor via cart accompanied by a nurse. The patient left the laboratory in stable condition. Diagnostic Cath Status: Urgent Interventional Cath Status: Urgent Procedure Procedure Type Diagnostic procedure PCI procedure:Drug Eluting Coronary Stent:, OM Indications: Angina, Abnormal enzymes and Non-ST elevation. The procedure was explained in detail to the patient. Risks, complications and alternative treatments were reviewed. Written consent was obtained. Medications Reviewed with Patient prior to Procedure. Angiographic Findings Dominance: Right Cardiac Arteries and Lesion Findings LMCA: Abnormal.10% LAD: Abnormal.prox/mid/dist LAD stents patentThere is a previous stent on Mid LAD Mid subsection. There is a previous stent on Prox LAD. LCx: Lesion on 3rd Ob Tracey: Ostial.90% stenosis 24 mm length reduced to 0%. Pre procedure JEN III flow was noted. Post Procedure JEN III flow was present. The guidewire cross was successful.A good run off was present.The lesion was diagnosed as a high risk lesion.Culprit lesion. Devices used - Runthrough NS .014 x 180. Number of passes: 2. - Fielder XT 190 cm. Number of passes: 1. - Emerge Balloon 2.0 x 20. 1 inflation(s) to a max pressure of: 8 shivani. - Promus Premier 2.25 x 24 Stent. 2 inflation(s) to a max pressure of: 8 shivani. Coronary Tree Procedure Data Procedure Date Date: 05/19/2016Start: 09:13 AMEnd: 10:04 AM Entry Locations - Retrograde Percutaneous access was performed through the Right Radial artery (Primary location). A 6 Fr sheath was inserted. Hemostasis was successfully obtained using Mechanical Compression. Closure Comments: 14 cc air in r band by kain. Procedure Medications Order and Administration + + + + + !Time !Medication !Dosage !Route ! + + + + + !05/19/2016 09:00 AM !Fentanyl !50 mcg !I.V. ! + + + + + !05/19/2016 09:03 AM !Versed !1 mg !I.V. ! + + + + + !05/19/2016 09:07 AM !Oxygen !2 l/min !NC ! + + + + + !05/19/2016 09:12 AM !Fentanyl !50 mcg !I.V. ! + + + + + !05/19/2016 09:16 AM !Radial Verapamil !2.5 mg !I.A. ! + + + + + !05/19/2016 09:17 AM !Oxygen !4 l/min !NC ! + + + + + !05/19/2016 09:22 AM !Heparin (ACC_3) !6000 units !I.V. bolus ! + + + + + !05/19/2016 09:35 AM !Nitroglycerin ! !I.V. ! + + + + + Devices Used - A6 Fr. EBU 3.5 Guide Catheterwas used for:Circumflex Intervention. Contrast Material - Isovue [id number] ml Fluoroscopy Time: Diagnostic: 22:48 minutes. Total: 22:48 minutes. Fluoroscopy Dose: Diagnostic: 1858 mGy. Total: 1858 mGy. Estimated Blood Loss: 10 ml. Additional [facility] PCI Information PCI Indication:PCI for high risk Non-STEMI or unstable angina. Medical History Allergies - Sulfa. - Sulfa. - Sulfa. - Other:(bivilirudin, amlodipine). Risk Factors The patient risk factors include:prior PCI on 05/09/2016;obesity, physical activity, treated hypercholesterolemia, treated hypertension, family history of premature CAD, insulin-treated diabetes mellitus, last creatinine: 1.3 mg/dl, creatinine clearance: 102 ml/min, dyslipidemia, former tobacco use and prior IA . Admission Data Admission Date: 05/16/2016 Admission Time: 06:05 PM Admit Source: Emergency department Insurance Payors: Private health insurance. Admission Medications + +------+------+ + + + + !Medication !Dosage!Times !Last !Last !Administered !Comments ! ! ! !Per !Delivery !Delivery ! ! ! ! ! !Day !Date !Time ! ! ! + +------+------+ + + + + !Aspirin ! ! ! ! ! ! ! !(any) ! ! ! ! ! ! ! + +------+------+ + + + + !Beta Ramses! ! ! ! ! ! ! !(any) ! ! ! ! ! ! ! + +------+------+ + + + + !Nitrates (iv! ! ! ! ! ! ! !or buccal) ! ! ! ! ! ! ! + +------+------+ + + + + !Prasugrel ! ! ! ! ! ! ! + +------+------+ + + + + Clinical Evaluation Leading to Procedure - The patient's CAD presentation was assessed as: Non-STEMI. - The patient's anginal syndrome during the past two weeks was assessed as: Class IV according to the [place] Cardiovascular Society Classification System (CCS). Anti-anginal medications were prescribed during the past two weeks. The medications are: Beta Blockers, Long Acting Nitrates and Other. Hemodynamics Condition: Rest O2 Consumption: Estimated: 305.29Heart Rate: 113 bpm Pressures (mmHg) +-----+ + !Site !Pressure ! +-----+ + !AO !94/69 (81) ! +-----+ + !AO !108/81 (93) ! +-----+ + Shunts Oxygen Values O2 Capacity 163.88 O2 Consumption 305.29 Signatures dtt: ERICA SNIDER dtd: 05/19/16 0913 Physician Self Edit
[~2016-05-16 16:30] MED LIST changes: +PROCARDIA XL30 MG PO; +PROMETHAZINE HC25 M1 PO; +TYLENOL325 MG PO
[2016-05-16 17:03] LABS: HEMOGLOBIN 13.2 g/dL (12.0-17.0); MCH 29.7 pg (27.0-34.0); MCHC 32.2 gm/dL (32.0-36.5); MCV 92.1 fl (83.0-98.0); MPV 9.3 fl (9.4-12.4); PLATELET COUNT 223 K/uL (150-450); RBC 4.45 M/uL (4.00-6.00); RDW-CV 13.7 % (11.9-14.6); WBC 8.8 K/uL (4.0-11.0)
[2016-05-16 17:21] LABS: ALBUMIN 3.7 gm/dL (3.5-5.0); ANION GAP 12.9 (10.0-19.0); CALCIUM 8.6 mg/dL (8.5-10.5); CREATININE 2.2 mg/dL (0.6-1.3); POTASSIUM 4.9 mMol/L (3.7-5.1); TOTAL PROTEIN 7.2 g/dL (6.0-8.4)
[2016-05-16 17:22] LABS: INR - (THERAPEUTIC) 1.1 (0.9-1.1); PROTIME 11.2 SECONDS (9.6-11.1); PTT 29 SECONDS (25-32); TOTAL BILIRUBIN 0.7 mg/dL (0.0-1.5)
[2016-05-16 17:43] LABS: ABSOLUTE NEUTROPHIL CT (ANC) 7.6 K/uL (1.4-9.0); BANDED NEUTROPHIL # 0.9 K/uL (0.0-0.1); BANDED NEUTROPHILS % 10 %; LYMPHOCYTE # 0.9 K/uL (0.8-4.0); LYMPHOCYTE % 10 %; MONOCYTE # 0.4 K/uL (0.0-1.0); SEGMENTED NEUTROPHIL # 6.7 K/uL (1.4-9.0); SEGMENTED NEUTROPHIL % 76 %
[2016-05-16] MEDS ORDERED: COUGH (19:27)
--- NOTE | 2016-05-16 19:54 | NUR ---
Pt is a 45y/o male admitted to PCU @ 1900 this evening with hypoxia and JL. Pt got up to use the bathroom around 2am this morning and fell, hitting the rt side and back of neck/head. Since fall, has been experiencing headaches on the rt side of head rating pain 5-6/10. In ER, CT of head negative and sats in high 80%s. Pt reported was diagnosed with pneumonia on thursday. HX of balloon anigoplasty last week, [place] with stents placed, CAD, and hypercholesterol. Allergy to sulfa, iodine, bivalirudin, and amlodipine.
[2016-05-17 04:29] LABS: ALBUMIN 3.1 gm/dL (3.5-5.0); ANION GAP 10.6 (10.0-19.0); CREATININE 1.8 mg/dL (0.6-1.3); MAGNESIUM 2.3 mg/dL (1.3-2.6); POTASSIUM 4.6 mMol/L (3.7-5.1)
--- NOTE | 2016-05-17 04:54 | NUR ---
Significant Event: A/O x3. Afebrile. some anxiety. Flushed in face. VSS on 2L. LS exp wheezes/clears with cough. Harsh, productive cough. complained of chest pain "burning" in center of chest, gave 40mg protonix IV-relieved CP. 12 lead ekg neg. Last TN-T @ 0400 1.9. Gave xanax x1. NS @ 150/hr. Follow up: Continue to monitor per plan of care. Cardiology consulted for today.
--- NOTE | 2016-05-17 17:12 | NUR ---
PATIENT IS BEING WEANED OFF O2 DOWN TO 1 LITER STILL HAS HARSH COUGH. SALINE LOCKED THIS AFTERNOON. BLOOD PRESSURE IS IN THE HIGH 90'S THIS AFTERNOON BUT PATIENT IS ASYMPTOMATIC. HE STATES THAT IS SLIGHTLY DIZZY BUT HAS BEEN SINCE ADMISSION.
[2016-05-17 22:14] LABS: HEMATOCRIT 35.6 % (37.0-53.0); HEMOGLOBIN 11.7 g/dL (12.0-17.0); MCH 30.1 pg (27.0-34.0); MCHC 32.9 gm/dL (32.0-36.5); MCV 91.5 fl (83.0-98.0); MPV 9.6 fl (9.4-12.4); RBC 3.89 M/uL (4.00-6.00); RDW-CV 13.4 % (11.9-14.6); WBC 5.8 K/uL (4.0-11.0)
[2016-05-17 22:15] LABS: PLATELET COUNT 169 K/uL (150-450)
[2016-05-17 22:27] LABS: PROTIME 10.6 SECONDS (9.6-11.1)
[2016-05-17 22:46] LABS: ABSOLUTE NEUTROPHIL CT (ANC) 2.6 K/uL (1.4-9.0); LYMPHOCYTE # 2.8 K/uL (0.8-4.0); LYMPHOCYTE % 49 %; MONOCYTE # 0.3 K/uL (0.0-1.0); SEGMENTED NEUTROPHIL # 2.6 K/uL (1.4-9.0); SEGMENTED NEUTROPHIL % 45 %
[2016-05-18 05:00] LABS: HEMATOCRIT 36.7 % (37.0-53.0); HEMOGLOBIN 11.8 g/dL (12.0-17.0); MCH 29.8 pg (27.0-34.0); MCHC 32.2 gm/dL (32.0-36.5); MCV 92.7 fl (83.0-98.0); MPV 9.8 fl (9.4-12.4); PLATELET COUNT 176 K/uL (150-450); RBC 3.96 M/uL (4.00-6.00); RDW-CV 13.5 % (11.9-14.6); WBC 5.3 K/uL (4.0-11.0)
--- NOTE | 2016-05-18 05:09 | NUR ---
Significant Event: Patient alert and oriented x3. Patient complained of dull, sharp, shooting chest pain/pressure. Dr. Devine notified. Nitro gtt running at 15mcg/min with orders to not titrate down. Heparin gtt at 1100units/hr. Next PTTHP at 1130. HR 70s-120s. SBP 90s-170s. All other vitals stable. On 2L O2 per NC. Lungs coarse. Harsh, persistent cough continues. Patient has had no complaints of chest pain since Nitro gtt started. Has also complained of back pain. [place] 1 tab x2 given with relief. Xanex given x1 for anxiety. Patient up ad-lucero in room. 3050ml uop this shift. Calm and cooperative with all cares. Follow up: Will continue to monitor chest pain and respiratory status. Possible Heart Cath?
[2016-05-18 05:19] LABS: ALBUMIN 3.1 gm/dL (3.5-5.0); ANION GAP 9.4 (10.0-19.0); CALCIUM 8.1 mg/dL (8.5-10.5); CREATININE 1.6 mg/dL (0.6-1.3); MAGNESIUM 2.3 mg/dL (1.3-2.6); PHOSPHORUS 2.3 mg/dL (2.5-4.9); POTASSIUM 4.4 mMol/L (3.7-5.1)
[2016-05-18 05:48] LABS: ABSOLUTE NEUTROPHIL CT (ANC) 2.1 K/uL (1.4-9.0); LYMPHOCYTE # 2.7 K/uL (0.8-4.0); LYMPHOCYTE % 50 %; MONOCYTE # 0.3 K/uL (0.0-1.0); SEGMENTED NEUTROPHIL # 2.1 K/uL (1.4-9.0); SEGMENTED NEUTROPHIL % 40 %
--- NOTE | 2016-05-18 18:58 | NUR ---
PLAN FOR A HEART CATH IN AM AT 0900. PLEASE PREP GROINS AND WRISTS. CHECK ORDERS FOR TIME TO START NS FOR PREHYDRATION FOR HEART CATH.
--- NOTE | 2016-05-19 05:37 | NUR ---
Significant Event: Patient alert and oriented x3. SBP 90s-160s. HR 60s-110s. On 1-2L O2. All other vital signs stable. Nitro gtt continues at 15mcg/min. Heparin gtt at 1300units/hr. Next PTTHP at 0800. Harsh, persistent, non-productive cough continues. No complaints of chest pain. Complained of severe headache with nausea and emesis with third assessment. [place], Tylenol, and one-time order of Morphine given with relief. [place] given x2 for headache/back pain. Right groin and wrist sites prepped. Up ad lucero in room. Calm and cooperative with all cares. Follow up: Labs this morning. Heart Cath at 0900.
[2016-05-19 06:15] LABS: HEMATOCRIT 38.3 % (37.0-53.0); HEMOGLOBIN 12.5 g/dL (12.0-17.0); MCH 29.7 pg (27.0-34.0); MCHC 32.6 gm/dL (32.0-36.5); MPV 9.7 fl (9.4-12.4); RBC 4.21 M/uL (4.00-6.00); RDW-CV 13.5 % (11.9-14.6); WBC 6.4 K/uL (4.0-11.0)
[2016-05-19 06:16] LABS: PLATELET COUNT 213 K/uL (150-450)
[2016-05-19 06:30] LABS: PTT 54 SECONDS (25-32)
[2016-05-19 06:47] LABS: ALBUMIN 3.2 gm/dL (3.5-5.0); ANION GAP 11.3 (10.0-19.0); CALCIUM 8.5 mg/dL (8.5-10.5); CREATININE 1.3 mg/dL (0.6-1.3); POTASSIUM 4.3 mMol/L (3.7-5.1); TOTAL BILIRUBIN 0.4 mg/dL (0.0-1.5); TOTAL PROTEIN 6.6 g/dL (6.0-8.4)
[2016-05-19 07:01] LABS: ABSOLUTE NEUTROPHIL CT (ANC) 3.9 K/uL (1.4-9.0); LYMPHOCYTE # 2.1 K/uL (0.8-4.0); LYMPHOCYTE % 33 %; MONOCYTE # 0.2 K/uL (0.0-1.0); SEGMENTED NEUTROPHIL # 3.9 K/uL (1.4-9.0); SEGMENTED NEUTROPHIL % 61 %
--- NOTE | 2016-05-19 13:00 | NUR ---
Introduced self and CM role to Rigoberto and his S/O Courtney who was at bedside. Rigoberto lives at home in [place] and it is his plan to return there when he is medically cleared to do so. Has no concerns about returning home when ready to dismiss. He does all of his own medications at home and has no issues with obtaining them. Denies any other questions, needs or concerns. Will continue to follow and assist. Plan home.
--- NOTE | 2016-05-19 19:12 | NUR ---
PATIENT WENT DOWN FOR A HEART CATH TODAY. HE RECIEVED A STENT TO THE OM. RT WRIST ACCESSED, [place] IS PRESENT ON RIGHT WRIST, WRIST IS SOFT AND CSMS ARE INTACT.
[2016-05-20 04:54] LABS: ALBUMIN 3.4 gm/dL (3.5-5.0); ALK PHOS 89 IU/L (33-138); ALT 29 IU/L (12-78); ANION GAP 13.3 (10.0-19.0); AST 21 IU/L (10-40); BLOOD UREA NITROGEN 16 mg/dL (6-24); CALCIUM 8.6 mg/dL (8.5-10.5); CHLORIDE 104 mMol/L (96-110); CO2 25 mMol/L (22-32); CREATININE 1.2 mg/dL (0.6-1.3); ESTIMATED GFR (MDRD EQUATION) > 60; POTASSIUM 4.3 mMol/L (3.7-5.1); SODIUM 138 mMol/L (135-145); TOTAL BILIRUBIN 0.4 mg/dL (0.0-1.5); TOTAL PROTEIN 6.9 g/dL (6.0-8.4)
--- NOTE | 2016-05-20 07:53 | NUR ---
Significant Event: Patient alert and oriented x3. Vital signs stable. No cough this shift. Lungs sound clear/diminished throughout. No complaints of chest pain/pressure. Right wrist site soft, C/D/I. Pulses 2+. Complaints of back pain. [place] given x2 with relief. Up independently in room. Calm and cooperative with all cares. Follow up: Home today?
--- NOTE | 2016-05-20 13:38 | NUR ---
PATIENT DISMISSED TO HOME W/ [facility] PER PRIVATE AUTO. PATIENT TRANSFERED TO CAR BY RN. REVIEWED DISMISSAL INSTRUCTIONS AND RADIAL SITE CARE INSTRUCTIONS W/ PATIENT, HE VERBALIZED UNDERSTANDING. RADIAL SITE SOFT W/ NO DRAINAGE OR HEMATOMA, BAND-AID C/D/I.
== END 2016-05-20 13:25 | disposition disaster alternative care site (69) | DRG 246 ==
LOC: GACC 16:30 → GPCU 18:04
PROVIDERS: Internal Medicine; Internal Medicine Cardiovascular Disease; Internal Medicine Interventional Cardiology; Nurse Practitioner Family; ADMIT Internal Medicine
PROC: 027034Z Dilation of Coronary Artery, One Artery with Drug-eluting Intraluminal Device, Percutaneous Approach (ICD-10-PCS; principal; 2016-05-19)
PROC: B211YZZ Fluoroscopy of Multiple Coronary Arteries using Other Contrast (ICD-10-PCS; 2016-05-19)
PROC: 4A023N7 Measurement of Cardiac Sampling and Pressure, Left Heart, Percutaneous Approach (ICD-10-PCS; 2016-05-19)
DX: I21.4 Non-ST elevation (NSTEMI) myocardial infarction (principal); J18.9 Pneumonia, unspecified organism; N17.9 Acute kidney failure, unspecified; E78.5 Hyperlipidemia, unspecified; I10 Essential (primary) hypertension; I25.10 Atherosclerotic heart disease of native coronary artery without angina pectoris; J20.9 Acute bronchitis, unspecified; R55 Syncope and collapse; Z87.891 Personal history of nicotine dependence
CPT/HCPCS: A9270; C1725; C1769; C1874; C1887; C9113; C9600; J0696; J1200; J1644; J1940; J2250; J2270; J2550; J2930; J3010; J7030; J7040; J7050; J7060

== ENCOUNTER → 2016-05-28 | Outpatient (CLI) | payer OTHER ==
[~2016-05-28] MED LIST changes: +COUGH
[2016-05-28 14:54] LABS: BASOPHIL % 0.5 %; EOSINOPHIL % 0.5 %; HEMATOCRIT 42.5 % (37.0-53.0); HEMOGLOBIN 14.1 g/dL (12.0-17.0); IMMATURE GRANULOCYTE % 0.3 %; LYMPHOCYTE # 2.2 K/uL (0.8-4.0); LYMPHOCYTE % 34.7 %; MCH 29.7 pg (27.0-34.0); MCHC 33.2 gm/dL (32.0-36.5); MCV 89.7 fl (83.0-98.0); MONOCYTE # 0.4 K/uL (0.0-1.0); MONOCYTE % 6.3 %; MPV 10.1 fl (9.4-12.4); NEUTROPHIL # (ANC) 3.7 K/uL (1.4-9.0); NEUTROPHIL % 57.7 %; NRBC % 0 /100WBC (0-0.00); RBC 4.74 M/uL (4.00-6.00); RDW-CV 13.2 % (11.9-14.6); WBC 6.4 K/uL (4.0-11.0)
[2016-05-28 14:55] LABS: PLATELET COUNT 302 K/uL (150-450)
[2016-05-28 15:09] LABS: ALBUMIN 4.1 gm/dL (3.5-5.0); ALK PHOS 79 IU/L (33-138); ALT 53 IU/L (12-78); ANION GAP 10.3 (10.0-19.0); AST 32 IU/L (10-40); BLOOD UREA NITROGEN 22 mg/dL (6-24); CALCIUM 8.9 mg/dL (8.5-10.5); CHLORIDE 108 mMol/L (96-110); CO2 28 mMol/L (22-32); CPK 49 IU/L (35-332); CREATININE 1.3 mg/dL (0.6-1.3); ESTIMATED GFR (MDRD EQUATION) 60; POTASSIUM 4.3 mMol/L (3.7-5.1); SODIUM 142 mMol/L (135-145); TOTAL PROTEIN 7.5 g/dL (6.0-8.4)
[2016-05-28 15:17] LABS: TOTAL BILIRUBIN 0.7 mg/dL (0.0-1.5)
== END | disposition disaster alternative care site (69) ==
LOC: LNHI 14:48
PROVIDERS: Internal Medicine Interventional Cardiology
DX: R07.89 Other chest pain (principal)

== ENCOUNTER → 2016-10-14 | Outpatient (CLI) | payer OTHER | END | disposition disaster alternative care site (69) | LOC: GAMB 11:09 | DX: G40.909 Epilepsy, unspecified, not intractable, without status epilepticus (principal); R11.0 Nausea; Z85.841 Personal history of malignant neoplasm of brain; Z79.899 Other long term (current) drug therapy | CPT/HCPCS: A0422; A0425; A0427; J2060; J2405; J7030 ==